=== PATIENT | male | born 1990 | race Caucasian/White ===

== ENCOUNTER 2017-05-27 15:10 | Emergency (ER) | payer OTHER ==
[2017-05-27 15:17] VITALS: BP 144/95
== END 2017-05-27 17:11 | disposition home or self-care (01) ==
LOC: ED 15:10
DX: H60.02 Abscess of left external ear (principal)
CPT/HCPCS: J1885; J2001

== ENCOUNTER 2017-05-29 14:29 | Emergency (ER) | payer OTHER ==
[2017-05-29 14:42] VITALS: BP 139/80
== END 2017-05-29 15:26 | disposition home or self-care (01) ==
LOC: ED 14:29
DX: Z48.01 Encounter for change or removal of surgical wound dressing (principal)

== ENCOUNTER 2018-08-19 16:43 | Emergency (ER) | payer OTHER ==
[~2018-08-19] VITALS: Ht 162.6 cm; Wt 76.7 kg
[2018-08-19 17:02] VITALS: BP 138/95; Ht 162.6 cm; Wt 76.7 kg
== END 2018-08-19 18:17 | disposition home or self-care (01) ==
LOC: ED 16:43
DX: J40 Bronchitis, not specified as acute or chronic (principal)